=== PATIENT | male | born 1945 | race Caucasian/White ===

== ENCOUNTER 2019-08-21 23:31 | Emergency (ER) | payer OTHER ==
[~2019-08-21] VITALS: Ht 188 cm; Wt 79.4 kg
--- NOTE | ~2019-08-21 | EMS ---
[place] [address] EMS Patient Care Report Name: ANTHONY BECERRIL Room: [facility]#: [id number] Admission: 08/21/19 Attend Phys: Discharge: Date of : 45 Report #: [id number] THIS REPORT FOR: //name// Report Transmitted: 08/22/2019 00:04 EMS Care Summary [facility] Incident [id number] @ 08/21/2019 22:25 Incident Location [address] [place] [address] Patient ANTHONY BECERRIL Male, 74 Years 1945 Patient Address [address] [place] [address] Patient History Diabetes,Hypertension (HTN),Parkinson's Disease, Patient Allergies No known allergies, Patient Medications Zolpidem, Metformin, Carvedilol, Chief Complaint Back Pain Disposition Transported No Lights/[place] Dispatch Reason Falls Transported To [facility] Narrative Dispatched: Med 1 received a call at the station for a male who had fallen with possible broken ribs. Dispatched notified and PD requested due to the caller not giving specific information on initial contact and [place] [address] EMS Patient Care Report Name: ANTHONY BECERRIL Room: [facility] Alejandro#: [id number] Admission: 08/21/19 Attend Phys: Discharge: Date of : 45 Report #: [id number] Chief Complaint/Condition: The patient was found laying supine on the floor in his living room. He was laying on couch cushions. The patient appeared to have some discomfort and reported right sided back/flank pain from striking the couch on his fall. He had no other complaints. History of Present Illness/Injury: The patient stated that he was walking into his living room when he tripped over himself (patient is unsteady due to Parkinson's disease) and tried to break his fall. He struck his couch with his right side and lowered himself to the ground. He denied striking his neck or head as well as denied losing consciousness. He crawled on his floor to his phone and called his niece for help. She in turn called the EMS station for assistance. Assessment: The patient was a male in his 70's, A/Ox4, GCS 15. Airway patent, breathing clear, equal, and regular. CMS present with strong radial pulse. Tremor noted (normal for patient). Skin pink, warm, and dry. See section for further. Reason for Ambulance: The patient requested transport to the hospital for further treatment and assessment. Treatments: EKG showing sinus with artifact. IV therapy established. Toradol administered for pain. Summary: Med 1 arrived on scene and performed a patient assessment. Vitals obtained and information gathered. The patient was removed from the house via stair chair, assisted onto the stretcher, and placed in the ambulance. Transport initiated to the hospital. Treatments performed en route. The patient reported improvement post toradol. Report called to [place] with no further orders. The patient was delivered to ED room 10 and sheet transferred to the bed. Patient's wallet left in the ED room with him. Report given to staff and signatures obtained. Med 1 cleared the hospital and returned. Initial Vitals @23:26BP: 156/80, @22:50R: 16,BP: 160/77,GCS: 15,Revised Trauma: 12, @22:36P: 77,R: 22,BP: 120/76,GCS: 15,Temp: 97.7F,Revised Trauma: 12, @23:05P: 84,R: 18,BP: 156/79,GCS: 15,Glucose: 117,SpO2: 94,Revised Trauma: 12, @23:10P: 85,R: 16,GCS: 15,SpO2: 92, @23:25P: 89,R: 16,GCS: 15,SpO2: 94, Assessments @22:31MENTAL:Person Oriented,Time Oriented,Event Oriented,Place Oriented,SKIN:HEENT:LUNG SOUNDS:ABDOMEN:PELVIS//GI:EXTREMITIES:PULSE:Radial: 2+ Normal,NEURO:Tremors,Abnormal Gait,@23:13MENTAL:Person Oriented,Time Oriented,Place Oriented,Event Oriented,SKIN:HEENT:[place] [address] EMS Patient Care Report Name: JONEANTHONY Room: [facility] Alejandro#: [id number] Admission: 08/21/19 Attend Phys: Discharge: Date of : 45 Report #: [id number] SOUNDS:ABDOMEN:PELVIS//GI:EXTREMITIES:PULSE:Radial: 2+ Normal,NEURO:Tremors, Impression Injury of Lower Back Procedures @23:05Toradol - 30 Milligrams (mg) - Intravenous (IV)Response: Improved@23:00Saline Lock 10cc (18 ga) Site: Antecubital-LeftResponse: UnchangedSucceeded@22:31ALS AssessmentResponse: UnchangedSucceeded Timeline 22:25,Call Received 22:25,Dispatched 22:25,En Route 22:30,On Scene 22:31,At Patient 22:31,ALS Assessment,Response: UnchangedSucceeded, 22:36,BP: 120/76 M,PULSE: 77,RR: 22 R,SPO2: Ox,ETCO2: ,BG: ,PAIN: ,GCS: 15, 22:50,BP: 160/77 M,PULSE: ,RR: 16 R,SPO2: Ox,ETCO2: ,BG: ,PAIN: ,GCS: 15, 22:52,Depart Scene 23:00,Saline Lock 10cc 18 ga Site: Antecubital-Left,Response: UnchangedSucceeded, 23:05,Toradol - 30 Milligrams (mg) - Intravenous (IV),Response: Improved 23:05,BP: 156/79 M,PULSE: 84,RR: 18 R,SPO2: 94 Ox,ETCO2: ,B,PAIN: ,GCS: 15, 23:10,BP: / M,PULSE: 85,RR: 16 R,SPO2: 92 Ox,ETCO2: ,BG: ,PAIN: ,GCS: 15, 23:25,BP: / M,PULSE: 89,RR: 16 R,SPO2: 94 Ox,ETCO2: ,BG: ,PAIN: ,GCS: 15, 23:26,BP: 156/80 M,PULSE: ,RR: R,SPO2: Ox,ETCO2: ,BG: ,PAIN: ,GCS: , 23:27,At Destination 00:03,Call Closed Disclaimer v1.1 Copyright 2020 [employer] This EMS Care Summary contains data elements from the applicable legal record (which may be displayed differently). It is designed to provide pertinent information for the following purposes: continuity of care, clinical quality, and state data reporting. The complete legal record is available to ED staff and administrators of the receiving hospital in [facility]'s Patient Tracker. All data is provided "as is."
[2019-08-21] MEDS ORDERED: CARBIDOPA-LEVO1 EA10 PO (23:39)
[2019-08-21] MEDS ORDERED: METFORMIN HCL500 M3 PO (23:40)
[2019-08-22 00:51] LABS: ABSOLUTE EOSINOPHILS 0.2 thou/uL (0.0-0.7); ABSOLUTE MONOCYTES 0.3 thou/uL (0.0-1.2); ABSOLUTE NEUTROPHILS 4.8 thou/uL (1.6-8.1); BASOPHILS 0.7 %; EOSINOPHILS 2.5 %; HEMATOCRIT 34.6 % (42.0-52.0); HEMOGLOBIN 11.5 gm/dL (14.0-18.0); LYMPHOCYTES 16.2 %; MCH 28.2 pg (26.0-34.0); MCHC 33.1 g/dL (28.0-37.0); MCV 85.1 fL (80.0-100.0); MONOCYTES 5.2 %; MPV 9.9 fl. (7.2-11.1); NUCLEATED RBCS 0 /100WBC; PLATELET COUNT* 196 thou/uL (150-400); POLYS 75.4 %; RBC 4.07 mil/uL (4.50-6.00); RDW-CV 14.7 % (10.5-14.5); WBC 6.4 thou/uL (4.0-11.0)
[2019-08-22 01:01] LABS: CALCIUM 8.6 mg/dL (8.5-10.1); CREATININE 1.4 mg/dL (0.6-1.3); POTASSIUM 5.2 mmol/L (3.5-5.1)
[2019-08-22 02:49] LABS: CALCIUM 8.9 mg/dL (8.5-10.1); CREATININE 1.4 mg/dL (0.6-1.3)
[2019-08-22] MEDS ORDERED: HYDROCODON-ACE1 EAC8 PO (02:59)
[2019-08-22 03:11] VITALS: BP 130/50
== END 2019-08-22 03:13 | disposition home or self-care (01) ==
LOC: M.ERS 23:31
PROVIDERS: Emergency Medicine
DX: M54.6 Pain in thoracic spine (principal); E11.9 Type 2 diabetes mellitus without complications; M54.5 Low back pain; W01.0XXA Fall on same level from slipping, tripping and stumbling without subsequent striking against object, initial encounter; Y93.89 Activity, other specified; Y92.89 Other specified places as the place of occurrence of the external cause; Y99.8 Other external cause status